=== PATIENT | female | born 1965 | race Caucasian/White ===

== ENCOUNTER 2020-12-11 15:53 | Emergency (ER) | payer BC, MEDICARE ==
[~2020-12-11] VITALS: Ht 172.7 cm; Wt 75.0 kg
[~2020-12-11 15:53] MED LIST: CLON0.1T PO; LAMO50TA3 PO; LEVO150T8 PO; METH-797 PO; METH-806 PO; TRAZ-251 PO; VENL75TA4 PO
[2020-12-11 16:56] VITALS: BP 133/81
[2020-12-11] MEDS ORDERED: ketorolac tromethamine 15mg/ml inj. IM ONE (17:50)
[2020-12-11] MEDS ORDERED: IBUP-1984 PO (18:28)
== END 2020-12-11 19:40 | disposition home or self-care (01) ==
LOC: ER 15:53
DX: M25.571 Pain in right ankle and joints of right foot (principal); M79.671 Pain in right foot; R26.89 Other abnormalities of gait and mobility; R22.41 Localized swelling, mass and lump, right lower limb; R20.0 Anesthesia of skin; E07.9 Disorder of thyroid, unspecified; G89.29 Other chronic pain; Z90.710 Acquired absence of both cervix and uterus; Z98.890 Other specified postprocedural states; Z88.8 Allergy status to other drugs, medicaments and biological substances; Z79.899 Other long term (current) drug therapy
CPT/HCPCS: 73600; 96372; 99283; J1885

== ENCOUNTER 2022-07-29 13:20 | Emergency (ER) | payer BC, MEDICARE ==
[~2022-07-29] VITALS: Ht 172.7 cm; Wt 73.6 kg
[2022-07-29 13:43] VITALS: BP 153/82
[2022-07-29] MEDS ORDERED: ketorolac trometh inj. 60 MG/2 ML VIAL IM ONE (14:40)
[2022-07-29] MEDS ORDERED: ketorolac trometh. 30mg/ml inj. IM ONE (14:50)
[2022-07-29] MEDS ORDERED: IBUP-860 PO ×2 (15:02)
[2022-07-29] MEDS ORDERED: TRAM50TA2 PO (15:15)
== END 2022-07-29 15:18 | disposition home or self-care (01) ==
LOC: ER 13:21
DX: R10.31 Right lower quadrant pain (principal); G89.29 Other chronic pain; F11.90 Opioid use, unspecified, uncomplicated; Z90.710 Acquired absence of both cervix and uterus; Z88.8 Allergy status to other drugs, medicaments and biological substances; Z79.899 Other long term (current) drug therapy
CPT/HCPCS: 96372; 99283; J1885; A6449

== ENCOUNTER 2022-10-31 05:44 | Day surgery (SDC) | payer BC, MEDICARE ==
[2022-10-26 15:43] LABS: BASOPHILS # (AUTO) 0.1 X10'3 (0-0.2); BASOPHILS % (AUTO) 1.2 % (0-1); EOSINOPHILS # (AUTO) 0.3 X10'3 (0-0.9); EOSINOPHILS % (AUTO) 4.4 % (0-6); LYMPHOCYTES # (AUTO) 2.9 X10'3 (1.1-4.8); LYMPHOCYTES % (AUTO) 41.3 % (21-51); MEAN CORPUSCULAR HEMOGLOBIN 31.4 PG (27.0-31.0); MEAN CORPUSCULAR HGB CONC 33.4 g/dL (33.0-36.5); MEAN CORPUSCULAR VOLUME 93.9 FL (78-98); MEAN PLATELET VOLUME 7.5 FL (7.4-10.4); MONOCYTES # (AUTO) 0.6 X10'3 (0-0.9); MONOCYTES % (AUTO) 9.2 % (2-12); NEUTROPHILS % (AUTO) 43.9 % (42-75); PRE OP HEMATOCRIT 39.6 % (35.0-45.0); PRE OP HEMOGLOBIN 13.2 g/dL (12.0-16.0); PRE OP PLATELET COUNT 276 X10'3 (140-440); RED BLOOD COUNT 4.22 X10'6 (4.20-5.60); RED CELL DISTRIBUTION WIDTH 13.1 % (11.5-14.5)
[2022-10-26 15:58] LABS: ALBUMIN 4.1 G/DL (3.4-5.0); ALBUMIN/GLOBULIN RATIO 1.5 (1.1-1.5); ALKALINE PHOSPHATASE 66 IU/L (46-116); BLOOD UREA NITROGEN 17 MG/DL (7-18); BUN/CREATININE RATIO 19.1 (10.0-20.0); CALCIUM 8.9 MG/DL (8.5-10.1); CHLORIDE 106 MMOL/L (99-107); CREATININE 0.89 MG/DL (0.40-0.90); PRE OP ALT 22 U/L (30-65); PRE OP ANION GAP 9 (8-16); PRE OP AST 21 U/L (10-37); PRE OP BILIRUB, TOTAL 0.2 MG/DL (0.0-1.0); PRE OP GLUCOSE 84 MG/DL (70-104); PRE OP POTASSIUM 3.6 MMOL/L (3.4-5.1); PRE OP SODIUM 142 MMOL/L (135-145); TOTAL CARBON DIOXIDE 27.1 MMOL/L (24-32); TOTAL PROTEIN 6.9 G/DL (6.4-8.2); eGFR 65 ML/MIN
[~2022-10-31] VITALS: Ht 172.7 cm; Wt 79.2 kg
[2022-10-31] VITALS (8 sets, daily range): BP systolic 108–123; BP diastolic 60–92
[~2022-10-31 05:44] MED LIST changes: -CLON0.1T PO; +DEXT20TA6 PO; -LAMO50TA3 PO; -METH-797 PO; -METH-806 PO; +OMEP40CA21 PO; -TRAZ-251 PO; +VARE1TAB24 PO; +VENL37.55 PO; -VENL75TA4 PO; +cefazolin 2gm/D5W 100mL 100 ML IV ONE; +famotidine 20mg tablet PO ONE; +ringers solution, lacted 1,000 ML IV SCH
[2022-10-31] MEDS ORDERED: BUPIVAcaine/PF 2.5 mg/ml (0.25%) 30ml vial ONE (06:31)
[2022-10-31] MEDS ORDERED: midazolam 1 mg/ML 2ml injection ONE (07:17)
[2022-10-31] MEDS ORDERED: fentaNYL/PF 50MCG/1 ML 2ML syringe ONE (07:17)
[2022-10-31] MEDS ORDERED: ondansetron/PF 4mg/2ml inj IV PRN (07:25)
[2022-10-31] MEDS ORDERED: morphine 2 MG/ML inj. syringe IV PRN (07:25)
[2022-10-31] MEDS ORDERED: hydrALAZINE 20mg/ml inj. IV PRN (07:25)
[2022-10-31] MEDS ORDERED: fentaNYL/PF 50MCG/1 ML 2ML syringe IV PRN ×2 (07:25)
[2022-10-31] MEDS ORDERED: labetalol 20mg/4ml (5mg/ml) syringe IV PRN (07:25)
[2022-10-31] MEDS ORDERED: morphine 4 MG/ML inj SYRINge IV PRN (07:25)
[2022-10-31] MEDS ORDERED: ringers solution, lacted 1,000 ML IV SCH (07:25)
[2022-10-31] MEDS ORDERED: sevoflurane 250ml liquid IH ONE (07:44)
[2022-10-31] MEDS ORDERED: labetalol 20mg/4ml (5mg/ml) syringe IV ONE (07:58)
[2022-10-31] MEDS ORDERED: propofol inj 20 ML IV ONE (08:00)
[2022-10-31] MEDS ORDERED: ondansetron/PF 4mg/2ml inj ONE (08:01)
[2022-10-31] MEDS ORDERED: glycopyrrolate 0.2mg/ml inj ONE (08:01)
[2022-10-31] MEDS ORDERED: neostigmine methylsulfate 1 MG/ML 10ml vial ONE (08:01)
[2022-10-31] MEDS ORDERED: LIDOcaine 2% (20mg/ml) 5ml vial ONE (08:01)
[2022-10-31] MEDS ORDERED: rocuronium 10mg/ml inj IV ONE ×2 (08:01→08:19)
[2022-10-31] MEDS ORDERED: dexamethasone sod phosphate 4mg/ml inj. ONE (08:01)
[2022-10-31] MEDS ORDERED: hydrALAZINE 20mg/ml inj. IV ONE (08:23)
--- NOTE | 2022-10-31 09:15 | NUR ---
Received from OR via BED, accompanied by Anesthesiologist and report given by Anesthesiologist. PATIENT WAKING UP, NO S/S OF PAIN, V/S WNL, SCD ON, 20G TO LUE, ABDOMEN LAP SITE CLEAN W/ NO S/S OF COMPLICATIONS dermabonded lap sites to abdomen clean and dry
[2022-10-31] MEDS ORDERED: HYDROcodone/acetaminophen 10/325mg tab PO ONE (09:30)
--- NOTE | 2022-10-31 10:15 | NUR ---
PATIENT a&ox4, denies PAIN, V/S WNL, SCD Off, 20G TO LUE d/c , ABDOMEN LAP SITE CLEAN W/ NO S/S OF COMPLICATIONS dermabonded lap sites to abdomen clean and dry I HAVE REVIEWED D/C INSTRUCTIONS WITH PATIENT and they have verbalized understanding patient d/c home with all belongings and family gave transport home.
== END 2022-10-31 10:15 | disposition home or self-care (01) ==
LOC: PAS 05:44
PROVIDERS: ATTEND Surgery
DX: K40.30 Unilateral inguinal hernia, with obstruction, without gangrene, not specified as recurrent (principal); N73.6 Female pelvic peritoneal adhesions (postinfective); F90.9 Attention-deficit hyperactivity disorder, unspecified type; F32.A Depression, unspecified; K21.9 Gastro-esophageal reflux disease without esophagitis; E03.9 Hypothyroidism, unspecified; Z90.710 Acquired absence of both cervix and uterus; Z98.890 Other specified postprocedural states; Z79.899 Other long term (current) drug therapy; F17.210 Nicotine dependence, cigarettes, uncomplicated; Z72.89 Other problems related to lifestyle; Z80.3 Family history of malignant neoplasm of breast; Z83.3 Family history of diabetes mellitus; Z88.8 Allergy status to other drugs, medicaments and biological substances
CPT/HCPCS: 36415; 49650; 80053; 82948; 85025; 93005; C1781; J0360; J0690; J1100; J2250; J2270; J2405; J2704; J2710; J3010; J3490; J7030; J7120; S2900; Z7506; Z7508; Z7512; A4215; A4618; A6258; A6449; A7000; C1758